=== PATIENT | male | born 1975 | race Caucasian/White ===

== ENCOUNTER 2017-04-14 08:36 | Outpatient (CLI) | payer OTHER ==
--- NOTE | 2017-04-14 12:13 | Cat Scan Report ---
CT ABDOMEN AND PELVIS WITHOUT AND WITH CONTRAST INDICATION: Abdominal pain and inguinal pain due to hernia. COMPARISON: None similar at this institution. FINDINGS: Abdomen and pelvis CT performed before and after intravenous administration of 100 cc of Omnipaque 300. Oral contrast also given. LUNG BASES: Top normal heart size. Nonspecific distal esophageal wall prominence/thickening, not excluded for gastroesophageal reflux and/or hiatal hernia, amongst others. ABDOMEN: Precontrast images demonstrate geographic fatty hepatic infiltration with areas of fatty sparing, the largest approximately 9 cm in the right hepatic lobe as on axial image 18, series 2. No radiopaque gallstones or renal calculi. Postcontrast images demonstrate no focal suspicious hepatic or splenic lesions. No biliary dilatation. Right hepatic lobe approximately 18.5 cm in mid clavicular length. Patent veins. Gallbladder, pancreas, adrenals, aorta, IVC and kidneys within normal limits. No ascites or size significant adenopathy. Opacified GI tract nonobstructive. Normal appendix. Ventral wall attenuation at the umbilicus/approximately 4.3 cm transverse diastasis as on axial image 61, series 3. PELVIS: Urinary bladder, seminal vesicles and prostate within normal limits. Tiny prostatic calcifications. Partially imaged possible scrotal calcifications on axial image 103, series 2. Normal rectosigmoid. No free fluid or size significant adenopathy. Bilateral fat containing inguinal hernias measuring approximately 2.5 cm diameter. Subtle bilateral L5 pars defects. No spondylolisthesis. CONCLUSION: No acute CT abnormality with few incidental findings, including fatty liver and bilateral fat containing inguinal hernias, amongst others, as above. Please correlate. Thank you for the opportunity to participate in this patient's care.
== END 2017-04-14 08:37 | disposition home or self-care (01) ==
LOC: CT 08:36
PROVIDERS: ATTEND Family Medicine
DX: K40.90 Unilateral inguinal hernia, without obstruction or gangrene, not specified as recurrent (principal); K43.9 Ventral hernia without obstruction or gangrene; E66.01 Morbid (severe) obesity due to excess calories; K76.0 Fatty (change of) liver, not elsewhere classified; N42.89 Other specified disorders of prostate; R09.81 Nasal congestion
CPT/HCPCS: 74178; Q9967